=== PATIENT | female | born 1985 | race Caucasian/White ===

== ENCOUNTER 2016-11-25 18:15 | Emergency (ER) | payer SELFPAY ==
[~2016-11-25] VITALS: Ht 165.1 cm; Wt 77.6 kg
[2016-11-25] MEDS ORDERED: ALPR1TAB7 PO (18:25)
[2016-11-25] MEDS ORDERED: ZOLP5TAB2 PO (18:25)
--- NOTE | 2016-11-25 18:47 | NUR ---
PT IS IN ROOM #2A. DR CULVER EVALUATED THE PT.
[2016-11-25] MEDS ORDERED: VANCOMYCIN IV 1,000 MG in IV DEXTROSE 5% 250 ML IV ONE (19:15)
[2016-11-25] MEDS ORDERED: MORPHINE SULFATE 2 MG/1 ML DISP.SYRIN IV ONE (19:15)
[2016-11-25] MEDS ORDERED: ONDANSETRON 4 MG/2 ML VIAL IV ONE (19:15)
[2016-11-25 19:49] LABS: BASOPHILS % (AUTO) 0.4 % (0.0-2.0); EOSINOPHILS # (AUTO) 0.1 K/uL (0.0-0.7); EOSINOPHILS % (AUTO) 1.2 % (0.0-7.0); HEMOGLOBIN 12.1 g/dL (12.0-16.0); LYMPHOCYTES # (AUTO) 1.3 K/uL (0.8-4.8); LYMPHOCYTES % (AUTO) 11.9 % (20.5-51.5); MEAN CORPUSCULAR HEMOGLOBIN 28.8 uug (27.0-31.0); MEAN CORPUSCULAR HGB CONC 34 g/dL (32.0-37.0); MEAN CORPUSCULAR VOLUME 85.4 fL (81.0-99.0); MONOCYTES # (AUTO) 0.7 K/uL (0.1-1.30); MONOCYTES % (AUTO) 6.4 % (0.0-11.0); NEUTROPHILS # (AUTO) 8.6 K/uL (1.8-8.9); NEUTROPHILS % (AUTO) 80.1 % (38.5-71.5); PLATELET COUNT (AUTO) 248 K/uL (150-450); RED BLOOD CELL COUNT(AUTO) 4.21 MIL/uL (4.20-5.40); RED CELL DISTRIBUTION WIDTH 14.6 % (11.5-14.5); WHITE BLOOD COUNT (AUTO) 10.7 K/uL (4.0-11.2)
[2016-11-25] MEDS ORDERED: VANCOMYCIN IV 200 ML ONE (19:52)
[2016-11-25] MEDS ORDERED: MORPHINE SULFATE 2 MG/1 ML DISP.SYRIN ONE (19:52)
[2016-11-25] MEDS ORDERED: ONDANSETRON 4 MG/2 ML VIAL ONE (19:52)
[2016-11-25 20:01] LABS: CALCIUM 8.7 mg/dL (8.5-10.1); CREATININE 0.7 mg/dL (0.6-1.3); POTASSIUM 3.4 mmol/L (3.5-5.1)
[2016-11-25 20:08] LABS: ALBUMIN 3.9 g/dL (3.4-5.0); BILIRUBIN,DIRECT 0.2 mg/dL (0.0-0.2)
--- NOTE | 2016-11-25 20:19 | NUR ---
Jasmin de souza in ED - 11/25/16 at 2214 by OSMANY Patient discharged to home in stable conditon. Written and verbal after care instructions given. Patient verbalizes understanding of instructions.
[2016-11-25 20:21] VITALS: BP 128/75
--- NOTE | 2016-11-25 21:20 | NUR ---
MD ordered to keep IV in right forearm and cover it with gauze and coban. Patient given discahrge instructions and she was told to come back in 24 hours for left foot to be rechecked.
--- NOTE | 2016-11-25 21:34 | NUR ---
Patient discharged to home in stable conditon. Written and verbal after care instructions given. Patient verbalizes understanding of instructions.
== END 2016-11-25 21:34 | disposition home or self-care (01) ==
LOC: ER 18:15
DX: L03.115 Cellulitis of right lower limb (principal); F41.9 Anxiety disorder, unspecified
CPT/HCPCS: 36415; 85025; 85730; A4663; J2270; J2405; J3370

== ENCOUNTER 2016-11-26 21:50 | Emergency (ER) | payer SELFPAY ==
[~2016-11-26] VITALS: Ht 165.1 cm; Wt 81.2 kg
[~2016-11-26 21:50] MED LIST: ALPR1TAB7 PO; ZOLP5TAB2 PO
[2016-11-26] MEDS: VANCOMYCIN IV 1,000 MG in IV DEXTROSE 5% 250 ML IV ONE (22:30)
[2016-11-26] MEDS ORDERED: VANCOMYCIN IV 200 ML ONE (22:31)
--- NOTE | 2016-11-26 22:40 | NUR ---
Patient arrived in ER with IV site present on R FA #[id number] stating that it was inserted yesterday. IV site is clean and patent.
[2016-11-26] MEDS: HYDROMORPHONE 1 MG/1 ML DISP.SYRIN IV ONE (22:42)
[2016-11-26] MEDS: ONDANSETRON IV *ER 4 MG/2 ML VIAL IV ONE (22:42)
[2016-11-26] MEDS ORDERED: ONDANSETRON 4 MG/2 ML VIAL ONE (22:47)
[2016-11-26] MEDS ORDERED: HYDROMORPHONE 1 MG/1 ML DISP.SYRIN ONE (22:47)
--- NOTE | 2016-11-27 00:30 | NUR ---
Patient discharged to home in stable conditon. Written and verbal after care instructions given. Patient verbalizes understanding of instructions. Left unit at 0030
[2016-11-27 00:35] VITALS: BP 116/71
== END 2016-11-27 00:30 | disposition home or self-care (01) ==
LOC: ER 21:50
DX: L03.116 Cellulitis of left lower limb (principal); F41.9 Anxiety disorder, unspecified; F10.20 Alcohol dependence, uncomplicated; F17.200 Nicotine dependence, unspecified, uncomplicated
CPT/HCPCS: A4663; J1170; J2405; J3370